=== PATIENT | male | born 1985 ===

== ENCOUNTER 2017-08-29 21:45 | Emergency (ER) | payer OTHER ==
[2017-08-29] MEDS ORDERED: VECURONIUM BROMIDE 10 MG VIAL IV ONE (21:49)
[2017-08-29] MEDS ORDERED: SUCCINYLCHOLINE CHLORIDE 20 MG/ML 10 ML VIAL IV ONE (21:49)
[2017-08-29] MEDS ORDERED: ETOMIDATE 2 MG/ML 20 ML VIAL IV ONE (21:49)
--- NOTE | 2017-08-29 21:55 | EMERGENCY ROOM VISIT NOTE ---
History Report prepared by aDrlin: Enid Bradford Under the Supervision of: Dr. Eliel Everett M.D. First contact with patient: 21:46 Chief Complaint: UNRESPONSIVE Stated Complaint: UNRESPONSIVE/BLOOD COMING FROM MOUTH History of Present Illness The patient is a 32 year old male who presents to the Emergency Room unresponsive. Arrives from [facility] by ALS. Per officer, the patient was convulsing in his residential cell and was alone. Unknown how long he was laying on ground. Per EMS, the patient may have a of schizophrenia. Limited HPI secondary to AMS. Source of History: EMS, other (officer) History Limited By: intubation Review of Systems Limited ROS secondary to intubation. Past Medical & Surgical Medical Problems: (1) Schizophrenia Family History Unable to obtain medical history sheet secondary to intubation. Social History Unable to obtain medical history sheet secondary to intubation. Current/Historical Medications Scheduled Calcium Carbonate-Vitamin D (Calcium + D), 1 TAB PO BID Perphenazine (Trilafon), 16 MG PO BID Perphenazine (Trilafon), 4 MG PO HS/UD Allergies Coded Allergies: No Known Allergies (Unverified , 08/29/17) Physical Exam Vital Signs Date Time Temp Pulse Resp B/P (MAP) Pulse Ox O2 Delivery O2 Flow Rate FiO2 08/30/17 00:44 72 25 136/104 99 08/30/17 00:17 100 08/29/17 23:40 71 25 110/78 94 Mechanical Ventilator 08/29/17 23:30 68 25 114/85 94 Mechanical Ventilator 100 08/29/17 23:20 72 25 124/87 91 Mechanical Ventilator 08/29/17 23:10 76 26 124/87 77 Ambu-Bag 15.0 08/29/17 23:00 81 26 107/72 75 Ambu-Bag 15.0 08/29/17 22:50 82 24 112/75 79 Ambu-Bag 15.0 08/29/17 22:40 62 22 125/79 60 Ambu-Bag 15.0 100 08/29/17 22:32 36.9 08/29/17 22:27 82 22 122/76 86 Ambu-Bag 15.0 08/29/17 22:00 94 24 154/92 82 Ambu-Bag 15.0 08/29/17 21:56 100 5/21/18 21:49 64 08/29/17 21:47 76 26 173/108 62 Ambu-Bag 15.0 Physical Exam GENERAL: Unresponsive, GCS 3. EYES: Right subconjunctival hemorrhage, fixed mid pupils. ENT: Mucous membranes moist, no nasal congestion. NECK: Trachea is midline, no masses, no swelling. RESPIRATORY: Equal chest rise with ventilation, diffuse crackles bilaterally, decreased breath sounds bilaterally. CARDIOVASCULAR: Cardiac activity appreciated. GASTROINTESTINAL: Abdomen soft. No masses appreciated. EXTREMITIES: All 4 extremity pulses appreciated. NEUROLOGIC: Unresponsive, GCS 3. SKIN: No rash, no jaundice. Medical Decision & Procedures ER Provider Diagnostic Interpretation: Radiology results and stated below per my review and radiologist interpretation: CHEST ONE VIEW PORTABLE HISTORY: 31 years-old Male hypoxia acute hypoxia with respiratory failure COMPARISON: None available TECHNIQUE: Portable AP view of the chest FINDINGS: Cardiac silhouette is within normal limits. Endotracheal tube overlies the midline, 3.2 cm superior to the janell. Bilateral dense alveolar opacities are noted within a multisegmental distribution favoring the perihilar and upper lung zones with air bronchograms. No pneumothorax or pleural effusion. Bones of the chest appear grossly intact. There is gaseous distention of the stomach. IMPRESSION: 1. Endotracheal tube overlies the midline, 3.2 cm superior to the janell. 2. Extensive bilateral alveolar opacities suggest multifocal pneumonia or noncardiogenic pulmonary edema. The above report was generated using voice recognition software. It may contain grammatical, syntax or spelling errors. Electronically signed by: Stanley Parker M.D. 08/29/2017 10:13 PM Dictated Date/Time: 08/29/2017 10:11 PM HEAD WITHOUT CONTRAST (CT) CLINICAL HISTORY: 31 years-old Male with AMS. Acutely altered mental status TECHNIQUE: Multiple axial CT images of the head were obtained without contrast. A dose lowering technique was utilized adhering to the principles of ALARA. COMPARISON: CT cervical spine of same day. FINDINGS: Motion degraded exam. No acute intracranial hemorrhage, midline shift, intracranial mass, hydrocephalus, territorial ischemia or abnormal extra-axial collection. The calvarium is intact. Secretions are seen within the nasopharynx, likely secondary to intubated status. Moderate thickening of the ethmoid air cells. Soft tissues are unremarkable. 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 IMPRESSION: Motion degraded exam without acute intracranial abnormality identified. The above report was generated using voice recognition software. It may contain grammatical, syntax or spelling errors. Electronically signed by: Stanley Parker M.D. 08/29/2017 10:29 PM Dictated Date/Time: 08/29/2017 10:26 PM CERVICAL SPINE W/O CT DOSE: 1165.63 mGy.cm CLINICAL HISTORY: 31 years-old Male with AMS, concern trauma. Acutely altered mental status COMPARISON: CT head of same day TECHNIQUE: Multiple axial CT images of the cervical spine were obtained without contrast. A dose lowering technique was utilized adhering to the principles of ALARA. FINDINGS: Straightening of the normal cervical lordosis. No acute cervical spine fracture, subluxation or significant degenerative changes. 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 No definite high-grade central canal or foraminal narrowing. Endotracheal tube is noted within the trachea. Moderate amount of secretions are noted within the airway. Polypoid mucosal thickening about the left maxillary sinus. Secretions are noted within the nasopharynx and ethmoid air cells. Mastoid air cells and middle ear cavities are clear. Soft tissues are unremarkable. Consolidation about the left lung apex partially imaged. IMPRESSION: No acute cervical spine fracture or subluxation. The above report was generated using voice recognition software. It may contain grammatical, syntax or spelling errors. Electronically signed by: Stanley Parker M.D. 08/29/2017 10:44 PM Dictated Date/Time: 08/29/2017 10:37 PM (CHEST FOR PE) ANGIO WITH CT DOSE: 1240.25 mGy.cm HISTORY: 31 years-old Male unresponsive. Opacities of the chest seen on chest radiograph of same day. TECHNIQUE: Multiple CTA images of the chest were obtained after the intravenous administration of 120 ml Optiray 320. Coronal and sagittal MIPS were obtained from the axial data set and were submitted for review. A dose lowering technique was utilized adhering to the principles of ALARA. COMPARISON: Chest radiograph same day. FINDINGS: CTA: Heart is normal in size. Thoracic aorta is normal in course and caliber without aneurysm or dissection. The imaged great vessels appear patent. Reflux of contrast into the IVC. Pulmonary arterial tree is opacified to the level of the subsegmental branches and demonstrates no focal filling defects to suggest pulmonary thromboembolic disease. Mild respiratory motion noted. CT CHEST: No thyroid nodule or definite pathologic adenopathy identified. Endotracheal tube is present within the trachea terminating proximally 2.3 cm superior to the janell. No pleural effusion or pneumothorax. Multilobar multisegmental consolidative and groundglass opacities are noted throughout the lungs bilaterally within an upper lung zone and perihilar predominant distribution with associated air bronchograms. Central airways are patent. Gaseous distention of the stomach with air-fluid level. Soft tissues are within normal limits. Bones appear intact. No acute displaced rib fracture identified. IMPRESSION: 1. No acute aortic pathology or evidence of pulmonary thromboembolic disease. 2. Satisfactory positioning of endotracheal tube. 3. Multilobar multisegmental consolidative and groundglass opacities throughout the lungs bilaterally within an upper lung zone and perihilar predominant distribution suggests filling of the alveoli secondary to aspiration, noncardiogenic pulmonary edema or multifocal pneumonia. 4. Gastric distention with large air-fluid level. The above report was generated using voice recognition software. It may contain grammatical, syntax or spelling errors. Electronically signed by: Stanley Parker M.D. 08/29/2017 10:55 PM Dictated Date/Time: 08/29/2017 10:49 PM CHEST ONE VIEW PORTABLE HISTORY: 31 years-old Male hypoxia acute respiratory failure with hypoxia COMPARISON: Chest radiograph of same day at 9:57 PM TECHNIQUE: Portable AP view of the chest FINDINGS: Cardiac silhouette is within normal limits. The lungs are hypoinflated with worsened lateral consolidation. Endotracheal tube overlies the midline, 3.1 cm superior to the janell. Enteric tube overlies the lower chest at the midline. Gaseous distention of the stomach. Bones appear grossly intact. IMPRESSION: 1. Distal enteric tube overlies the midline lower chest and is likely within the lower thoracic esophagus. This could be advanced at least 10 cm. 2. Satisfactory positioning of endotracheal tube. 3. Progressively worsened bilateral consolidation. The above report was generated using voice recognition software. It may contain grammatical, syntax or spelling errors. Electronically signed by: Stanley Parker M.D. 08/29/2017 11:01 PM Dictated Date/Time: 08/29/2017 10:58 PM A[address]OMEN AND PELVIS CT WITH IV CONTRAST HISTORY: Extensive pulmonary opacities with altered mental status. Concern for acute abdominal trauma. trauma, AMS, TECHNIQUE: Multiaxial CT images of the abdomen and pelvis were performed following the use of intravenous contrast. A dose lowering technique was utilized adhering to the principles of ALARA. COMPARISON STUDY: CTA of the chest of same day. FINDINGS: Extensive consolidation of the lung bases. No pneumatosis or pneumoperitoneum. Study is motion degraded. Imaged inferior cardiac chambers are unremarkable. Liver, spleen, pancreas, gallbladder and adrenal glands are unremarkable. 6 mm low attenuating lesion of the lateral interpolar left kidney suggests renal cyst. No hydronephrosis. No filling defects of the collecting systems or ureters identified. Mild bladder distention. Phleboliths of the pelvis. Aorta and IVC appear unremarkable. No retroperitoneal hematoma. Large air-fluid level with distention of the stomach. First and second portions of the duodenum are dilated and fluid-filled measuring up to 3.6 cm. Decreased caliber of the third portion duodenum with acute angulation of the superior mesenteric artery. No bowel obstruction. Minimal free pelvic fluid. Appendix appears unremarkable. No bulky adenopathy. Soft tissues are unremarkable. No acute displaced rib fracture. Bones appear intact. IMPRESSION: 1. Minimal free pelvic fluid from unknown etiology. 2. Marked distention of the stomach with associated air-fluid level. Proximal duodenum is also mildly dilated and fluid-filled with narrowing at the level of the third portion duodenum. Correlate clinically to exclude gastric outlet obstruction. 3. No fracture identified. 4. Extensive pulmonary consolidation. Electronically signed by: Stanley Parker M.D. 08/29/2017 11:10 PM Dictated Date/Time: 08/29/2017 11:01 PM Radiology results and stated below per my review. Repeat Chest X-Ray: Diffuse pulmonary congestive findings consistent with pulmonary edema. ET tube in place. No pneumothorax. NG tube is in the lower portion of the esophagus. Laboratory Results 08/29/17 22:05 Red Blood Count 5.36, Mean Corpuscular Volume 81.0, Mean Corpuscular Hemoglobin 28.7, Mean Corpuscular Hemoglobin Concent 35.5, Mean Platelet Volume 10.4, Neutrophils (%) (Auto) 82.5, Lymphocytes (%) (Auto) 10.5, Monocytes (%) (Auto) 6.2, Eosinophils (%) (Auto) 0.1, Basophils (%) (Auto) 0.0, Neutrophils # (Auto) 17.38, Lymphocytes # (Auto) 2.21, Monocytes # (Auto) 1.31, Eosinophils # (Auto) 0.02, Basophils # (Auto) 0.01 08/29/17 22:05 08/29/17 22:37 Test 08/29/17 22:05 08/29/17 22:30 08/29/17 22:37 08/29/17 23:24 White Blood Count 21.08 K/uL (4.8-10.8) Red Blood Count 5.36 M/uL (4.7-6.1) Hemoglobin 15.4 g/dL (14.0-18.0) Hematocrit 43.4 % (42-52) Mean Corpuscular Volume 81.0 fL (80-100) Mean Corpuscular Hemoglobin 28.7 pg (25-34) Mean Corpuscular Hemoglobin Concent 35.5 g/dl (32-36) Platelet Count 223 K/uL (130-400) Mean Platelet Volume 10.4 fL (7.4-10.4) Neutrophils (%) (Auto) 82.5 % Lymphocytes (%) (Auto) 10.5 % Monocytes (%) (Auto) 6.2 % Eosinophils (%) (Auto) 0.1 % Basophils (%) (Auto) 0.0 % Neutrophils # (Auto) 17.38 K/uL (1.4-6.5) Lymphocytes # (Auto) 2.21 K/uL (1.2-3.4) Monocytes # (Auto) 1.31 K/uL (0.11-0.59) Eosinophils # (Auto) 0.02 K/uL (0-0.5) Basophils # (Auto) 0.01 K/uL (0-0.2) RDW Standard Deviation 34.0 fL (36.4-46.3) RDW Coefficient of Variation 11.7 % (11.5-14.5) Immature Granulocyte % (Auto) 0.7 % Immature Granulocyte # (Auto) 0.15 K/uL (0.00-0.02) Bedside Chloride 81 mEq/L (101-112) Bedside Total CO2 21 mEq/l (24-31) Anion Gap 20.0 mmol/L (16-25) Bedside Blood Urea Nitrogen 11 mg/dl (7-18) Bedside Creatinine 0.6 mg/dl (0.6-1.3) Estimated GFR () 130.6 Estimated GFR (Non- 112.7 BUN/Creatinine Ratio 10.9 (10-20) Bedside Glucose (other) 175 mg/dl (70-99) Calcium Level 6.8 mg/dl (8.5-10.1) Bedside Ionized Calcium (John) 1.00 mmol/l (1.12-1.32) Total Bilirubin 1.0 mg/dl (0.2-1) Alanine Aminotransferase (ALT/SGPT) 59 U/L (12-78) Alkaline Phosphatase 91 U/L (45-117) Troponin I 0.046 ng/ml (0-0.045) Total Protein 6.6 gm/dl (6.4-8.2) Albumin 3.3 gm/dl (3.4-5.0) Urine Color ORANGE Urine Appearance CLOUDY (CLEAR) Urine pH 5.0 (4.5-7.5) Urine Specific [place] 1.028 (1.000-1.030) Urine Protein 2+ (NEG) Urine Glucose (UA) 2+ (NEG) Urine Ketones NEG (NEG) Urine Occult Blood 3+ (NEG) Urine Nitrite NEG (NEG) Urine Bilirubin NEG (NEG) Urine Urobilinogen NEG (NEG) Urine Leukocyte Esterase TRACE (NEG) Urine WBC (Auto) 1-5 /hpf (0-5) Urine RBC (Auto) 0-4 /hpf (0-4) Urine Hyaline Casts (Auto) 5-10 /lpf (0-5) Urine Epithelial Cells (Auto) 0-5 /lpf (0-5) Urine Bacteria (Auto) NEG (NEG) Urine Yeast (Auto) (NONE PRSENT) Direct Bilirubin mg/dl (0-0.2) Aspartate Amino Transf (AST/SGOT) 84 U/L (15-37) Total Creatine Kinase 3161 U/L (39-308) Chemistry Specimen Hemolysis Bedside Hemoglobin 15.0 g/dl (14.0-18.0) Bedside Hematocrit 44 % (42-52) Bedside Blood Gas pH (LAB) 7.33 (7.35-7.45) Bedside Blood Gas pCO2 (LAB) 34 mmHg (35-46) Bedside Blood Gas pO2 (LAB) 54 mmHg (80-95) Bedside Blood Gas HCO3 (LAB) 18 meq/L (19-24) Bedside Blood Gas Total CO2 19 mEq/l (24-31) Bedside Blood Gas Base Excess (LAB) -8.0 meq/L (-9-1.8) Bedside Blood Gas O2 Saturation 85.0 % (90-95) Bedside Sodium 116 mEq/L (135-144) Bedside Potassium 3.0 mEq/L (3.3-5.0) Laboratory results as reviewed by me. Medications Administered Medications (Trade) Dose Ordered Sig/Meliza Route Start Time Stop Time Status Last Admin Dose Admin Fentanyl Citrate (Fentanyl Inj) 100 mcg STK-MED ONCE .ROUTE 08/29/17 21:56 08/29/17 21:57 DC 08/29/17 21:56 100 MCG Midazolam HCl (Versed Inj) 10 mg STK-MED ONCE .ROUTE 08/29/17 21:56 08/29/17 21:57 DC 08/29/17 21:56 5 MG Midazolam HCl (Versed Inj) 5 mg NOW STAT IV 08/29/17 22:26 08/29/17 22:27 DC 08/29/17 22:26 5 MG Fentanyl Citrate (Fentanyl Inj) 100 mcg NOW ONCE IV 08/29/17 22:30 08/29/17 22:31 DC 08/29/17 22:30 100 MCG Miscellaneous Information (Patient'S Allergy Info Needs Entered) 1 ea NOW STAT N/A 08/29/17 22:26 08/29/17 22:27 DC 08/29/17 22:26 1 EA Levetiracetam 2000 mg/Dextrose 270 ml @ 999 mls/hr ONE ONCE IV 08/29/17 23:00 08/29/17 23:16 DC 08/29/17 23:21 999 MLS/HR Furosemide (Lasix Inj) 40 mg NOW STAT IV 08/29/17 22:57 08/29/17 22:58 DC 08/29/17 23:25 40 MG Vecuronium Lancaster (Vecuronium Lancaster Inj) 10 mg NOW STAT IV 08/29/17 23:15 08/29/17 23:17 DC 08/29/17 23:25 10 MG Fentanyl Citrate (Fentanyl Inj) 100 mcg NOW STAT IV 08/29/17 23:15 08/29/17 23:17 DC 08/29/17 23:24 100 MCG Midazolam HCl (Versed Inj) 5 mg NOW STAT IV 08/29/17 23:15 08/29/17 23:17 DC 08/29/17 23:25 5 MG Ceftriaxone Sodium (Rocephin Inj) 1 gm NOW STAT IV 08/29/17 23:32 08/29/17 23:33 DC 08/29/17 23:45 1 GM Metronidazole (Flagyl / Nss) 500 mg NOW STAT IV 08/29/17 23:32 08/29/17 23:33 DC 08/29/17 23:45 500 MG Potassium Chloride (KCL 10 mEq / WTR) 20 meq STK-MED ONCE .ROUTE 08/29/17 23:44 08/29/17 23:45 DC 08/29/17 23:46 10 MEQ Procedure Endotracheal Intubation Indication respiratory failure. The patient was on 100% oxygen via NRB prior to the procedure. Suction, airway equipment, RSI drugs, respiratory equipment, and appropriate personnel were prepared prior to the initiation of the procedure. A time out was taken. Induction was performed with etomidate and succinylcholine. After observing the clinical benefit of the medications, the airway was easily visualized utilizing a GlideScope number 4 blade. A 7.5 size ETT tube was placed atraumatically to 24 cm using standard technique. The cuff inflated without signs of malfunction. There were bilateral breath sounds, positive colormetric change, no gastric sounds, a good capnography waveform, and post procedure pulse oximetry was 68%. Post intubation sedation and paralysis was administered using Versed, fentanyl, and vecuronium. There were no complications. Note: large amounts of frothy pulmonary edema coming from trachea. ECG Per My Interpretation Indication: altered mental status Rate (beats per minute): 81 Rhythm: normal sinus Findings: no acute ischemic change, no ectopy, other (QTC 497) ED Course 7: The patient was evaluated in room B1. A complete history and physical exam was performed. 2202: The patient's sats are now 2% with aggressive bagging. 2208: The patient is going to CT scan. 2215: Discussed the patient's case with Dr. Calderón. Given the patient's persistent hypoxia and questionable trauma, he agreed it seemed reasonable to transfer the patient. 2222: We are still waiting to hear from [place]. 2226: The patient is back from CT scan. No movement. 2229: The patient continues to sat from 80% to 85% with bagging. I asked the nurses to place an NG tube 2235: [facility] is unsure if they have an ICU bed so to facilitate a faster transfer, we are calling [facility]. 2245: The patient is now hypoxic into the 70s. He has crackles bilaterally and breath sounds bilaterally. 2247: Given my evaluation, Dr. Malave notes that he feels that the patient should go to the ICU. 2255: After prolonged discussion with Avelina in [facility] ICU, she ask that the patient be transferred elsewhere given he may need ECMO. 2301: The patient is now satting at 80%. 2318: We are still waiting on the ICU. 2334: I discussed the patient's case with the [facility] ICU physician. They accepted the patient. 2344: I discussed the patient's case with [facility]'s command physician and they are determining if they can fly the patient or can go by ground. 2346: The patient is satting at 93%. 2352: The patient is being transferred to [facility]. 0016: They are putting the patient on the flight stretcher. Medical Decision Differential: Toxicological, Infectious, Stroke, SAH, Trauma, Electrolyte Abnormality, Hypoglycemia, Alcohol Intoxication, Drug Intoxication, Cardiac Abnormality, Sepsis, Meningitis/Encephalitis, Trauma, Excited Delirium, Serotonin Syndrome, Psychiatric, amongst other pathologies entertained. 31 yr old male arrives for evaluation of AMS. Very vague story with unclear exactly what actually happened. Found down in his residential cell at [facility] after unknown down time. No trauma noted other than right eye subconjunctival hematoma (of note throughout this there was concern trauma given initial reports by EMS of him laying in residential cell unconscious). Poor respirations and taken emergently by ALS to this facility. Just on arrival to hospital patient had either severe combative response vs seizure like activity, but then stopped and brought in to ED. On arrival agonal respirations with O2 sats in 40s and frothy bloody sputum noted in oropharynx/nares. Diffusely poor lung sounds with crackles. Emergently intubated and requiring hand bagging with PEEP 15 just to get sats to 60s with frequent suctioning. CXR confirms pulm edema consistent with findings on intubation. Given versed/fent/vecc for sedation and paralysis. Emergent CT head/neck negative. With no trauma appreciated on exam and negative CT cervical felt that taking collar off reasonable and will help with further management. CTA Chest with pulm edema vs ards vs infection, though no PE nor dissection nor pneumothorax. Labs with elevated WBC 21 which seems likely reactive, especially given no fevers. Suspect aspiration but clearly in pulm edema now. Na quite low of uncertain etiology. Query whether this lead to seizure, then AMS laying on floor, with development of pulmonary edema. CT abdo pelv with large gastric dilation. I do not feel that this is true assault/facial trauma and with negative ct head/neck I feel that NG tube reasonable to try decompressing stomach. NG tube placed with large outs. After essentially 90-120 minutes of playing with vent, IV lasix and keeping paralyzed patient's sats started creeping up to upper 80s/low 90s though rapidly plummet with even short decrease in pressure. Keeping with PEEP>15, RR 25, and FiO2 100%. Throughout vitals other than O2 actually doing quite well. HTN initially which gradually improved. May have been due to either seizurelike activity vs combative? Reviewed with CCM here (Dr Calderón) but given the possible need to ECMO, EEG, etc, we can not keep him at this facility. Discussed at length with [facility] though due to his significant hypoxia they felt that he probably requires higher level of care. Reviewed at length with [facility] who agree to take him. We discussed treatment approach and thus [facility] ordered. They advised holding on any IV fluids given his already severe pulmonary edema. Discussed case with Med Command Physician for [facility] as well. Of note helicopter crew in ED throughout most of stay as they had been called out prior to patient arriving here. Head Trauma GCS Score: 3 Medication Reconcilliation Current Medication List: was personally reviewed by me Blood Pressure Screening Patient's blood pressure: Normal blood pressure Consults Time Called: 2213 Consulting Physician: Dr. Calderón-Critical Care Returned Call: [phone] Discussed the patient's case with Dr. Calderón. Given the patient's persistent hypoxia and questionable trauma, he agreed it seemed reasonable to transfer the patient. Additional Consults: Time Called: 2244 Consulted Physician: Dr. Malave-Trauma Surgeon [facility] Returned Call: [phone] Additional Comments: Given my evaluation, Dr. Malave notes that he feels that the patient should go to the ICU. Time Called: 2333 Consulted Physician: [facility] ICU Physician Returned Call: [phone] Additional Comments: I discussed the patient's case with the [facility] ICU physician. They accepted the patient. Impression Primary Impression: Altered mental status Additional Impressions: Pulmonary edema Hypoxia Respiratory failure Hyponatremia Critical Care I have personally spent greater than 150 minutes of critical care time in the direct management of this patient. This was a life/limb threatening event. This includes time spent evaluating patient, direct bedside care, chart review, placing orders, interpretation of diagnostic studies, discussion with consultants, patient, and family members, as well as other required patient management activities. This 150 minutes is in excess of all separately billable procedures. Scribe Attestation The scribe's documentation has been prepared under my direction and personally reviewed by me in its entirety. I confirm that the note above accurately reflects all work, treatment, procedures, and medical decision making performed by me. Departure Information Dispostion Transfer Acute Care Facility Patient Instructions My [facility] Problem Qualifiers
[2017-08-29] MEDS ORDERED: FENTANYL CITRATE INJ 50 MCG/1 ML 2 ML VIAL ONE ×2 (21:56→22:06)
[2017-08-29] MEDS ORDERED: MIDAZOLAM HCL 5 MG/ML 2ML VIAL ONE ×3 (21:56→23:22)
--- NOTE | 2017-08-29 22:14 | DIAGNOSTIC IMAGING REPORT ---
CHEST ONE VIEW PORTABLE HISTORY: 31 years-old Male hypoxia acute hypoxia with respiratory failure COMPARISON: None available TECHNIQUE: Portable AP view of the chest FINDINGS: Cardiac silhouette is within normal limits. Endotracheal tube overlies the midline, 3.2 cm superior to the janell. Bilateral dense alveolar opacities are noted within a multisegmental distribution favoring the perihilar and upper lung zones with air bronchograms. No pneumothorax or pleural effusion. Bones of the chest appear grossly intact. There is gaseous distention of the stomach. IMPRESSION: 1. Endotracheal tube overlies the midline, 3.2 cm superior to the janell. 2. Extensive bilateral alveolar opacities suggest multifocal pneumonia or noncardiogenic pulmonary edema. The above report was generated using voice recognition software. It may contain grammatical, syntax or spelling errors. Electronically signed by: Stanley Parker M.D. 08/29/2017 10:13 PM Dictated Date/Time: 08/29/2017 10:11 PM
[2017-08-29] MEDS ORDERED: OPTIRAY 320 IV PRN (22:15)
[2017-08-29 22:19] LABS: ISTAT CREATININE 0.6 mg/dl (0.6-1.3); ISTAT POTASSIUM 3.2 mEq/L (3.3-5.0)
[2017-08-29 22:20] LABS: BASO ABS # 0.01 K/uL (0-0.2); EOS % 0.1 %; EOS ABS # 0.02 K/uL (0-0.5); HEMATOCRIT 43.4 % (42-52); HEMOGLOBIN 15.4 g/dL (14.0-18.0); IG# 0.15 K/uL (0.00-0.02); LYMPH % 10.5 %; LYMPH ABS # 2.21 K/uL (1.2-3.4); MEAN CORPUSCULAR HEMOGLOBIN 28.7 pg (25-34); MEAN CORPUSCULAR HGB CONC 35.5 g/dl (32-36); MEAN PLATELET VOLUME 10.4 fL (7.4-10.4); MONO % 6.2 %; MONO ABS # 1.31 K/uL (0.11-0.59); NEUT % 82.5 %; NEUT ABS # 17.38 K/uL (1.4-6.5); PLATELET COUNT 223 K/uL (130-400); RED CELL DISTRIBUTION WIDTH CV 11.7 % (11.5-14.5); WHITE BLOOD COUNT 21.08 K/uL (4.8-10.8)
[2017-08-29] MEDS ORDERED: MIDAZOLAM HCL 5 MG/ML 1 ML VIAL IV STA (22:26)
[2017-08-29] MEDS ORDERED: PATIENT'S ALLERGY INFO NEEDS ENTERED STA (22:26)
[2017-08-29] MEDS ORDERED: FENTANYL CITRATE INJ 50 MCG/1 ML 2 ML VIAL IV ONE (22:30)
--- NOTE | 2017-08-29 22:31 | DIAGNOSTIC IMAGING REPORT ---
HEAD WITHOUT CONTRAST (CT) CLINICAL HISTORY: 31 years-old Male with AMS. Acutely altered mental status TECHNIQUE: Multiple axial CT images of the head were obtained without contrast. A dose lowering technique was utilized adhering to the principles of ALARA. COMPARISON: CT cervical spine of same day. FINDINGS: Motion degraded exam. No acute intracranial hemorrhage, midline shift, intracranial mass, hydrocephalus, territorial ischemia or abnormal extra-axial collection. The calvarium is intact. Secretions are seen within the nasopharynx, likely secondary to intubated status. Moderate thickening of the ethmoid air cells. Soft tissues are unremarkable. 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 IMPRESSION: Motion degraded exam without acute intracranial abnormality identified. The above report was generated using voice recognition software. It may contain grammatical, syntax or spelling errors. Electronically signed by: Stanley Parker M.D. 08/29/2017 10:29 PM Dictated Date/Time: 08/29/2017 10:26 PM
[2017-08-29 22:32] VITALS: TEMP 36.9
--- NOTE | 2017-08-29 22:45 | DIAGNOSTIC IMAGING REPORT ---
CERVICAL SPINE W/O CT DOSE: 1165.63 mGy.cm CLINICAL HISTORY: 31 years-old Male with AMS, concern trauma. Acutely altered mental status COMPARISON: CT head of same day TECHNIQUE: Multiple axial CT images of the cervical spine were obtained without contrast. A dose lowering technique was utilized adhering to the principles of ALARA. FINDINGS: Straightening of the normal cervical lordosis. No acute cervical spine fracture, subluxation or significant degenerative changes. 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 No definite high-grade central canal or foraminal narrowing. Endotracheal tube is noted within the trachea. Moderate amount of secretions are noted within the airway. Polypoid mucosal thickening about the left maxillary sinus. Secretions are noted within the nasopharynx and ethmoid air cells. Mastoid air cells and middle ear cavities are clear. Soft tissues are unremarkable. Consolidation about the left lung apex partially imaged. IMPRESSION: No acute cervical spine fracture or subluxation. The above report was generated using voice recognition software. It may contain grammatical, syntax or spelling errors. Electronically signed by: Stanley Parker M.D. 08/29/2017 10:44 PM Dictated Date/Time: 08/29/2017 10:37 PM
[2017-08-29 22:47] LABS: ALBUMIN 3.3 gm/dl (3.4-5.0); ALT/SGPT 59 U/L (12-78); BLOOD UREA NITROGEN 10 mg/dl (7-18); CALCIUM 6.8 mg/dl (8.5-10.1); CARBON DIOXIDE 20 mmol/L (21-32); CREATININE 0.91 mg/dl (0.60-1.40); GLUCOSE 159 mg/dl (70-99)
[2017-08-29] MEDS ORDERED: FUROSEMIDE 40 MG/4 ML VIAL IV STA (22:57)
--- NOTE | 2017-08-29 22:57 | DIAGNOSTIC IMAGING REPORT ---
(CHEST FOR PE) ANGIO WITH CT DOSE: 1240.25 mGy.cm HISTORY: 31 years-old Male unresponsive. Opacities of the chest seen on chest radiograph of same day. TECHNIQUE: Multiple CTA images of the chest were obtained after the intravenous administration of 120 ml Optiray 320. Coronal and sagittal MIPS were obtained from the axial data set and were submitted for review. A dose lowering technique was utilized adhering to the principles of ALARA. COMPARISON: Chest radiograph same day. FINDINGS: CTA: Heart is normal in size. Thoracic aorta is normal in course and caliber without aneurysm or dissection. The imaged great vessels appear patent. Reflux of contrast into the IVC. Pulmonary arterial tree is opacified to the level of the subsegmental branches and demonstrates no focal filling defects to suggest pulmonary thromboembolic disease. Mild respiratory motion noted. CT CHEST: No thyroid nodule or definite pathologic adenopathy identified. Endotracheal tube is present within the trachea terminating proximally 2.3 cm superior to the janell. No pleural effusion or pneumothorax. Multilobar multisegmental consolidative and groundglass opacities are noted throughout the lungs bilaterally within an upper lung zone and perihilar predominant distribution with associated air bronchograms. Central airways are patent. Gaseous distention of the stomach with air-fluid level. Soft tissues are within normal limits. Bones appear intact. No acute displaced rib fracture identified. IMPRESSION: 1. No acute aortic pathology or evidence of pulmonary thromboembolic disease. 2. Satisfactory positioning of endotracheal tube. 3. Multilobar multisegmental consolidative and groundglass opacities throughout the lungs bilaterally within an upper lung zone and perihilar predominant distribution suggests filling of the alveoli secondary to aspiration, noncardiogenic pulmonary edema or multifocal pneumonia. 4. Gastric distention with large air-fluid level. The above report was generated using voice recognition software. It may contain grammatical, syntax or spelling errors. Electronically signed by: Stanley Parker M.D. 08/29/2017 10:55 PM Dictated Date/Time: 08/29/2017 10:49 PM
[2017-08-29] MEDS ORDERED: LEVETIRACETAM IV 2,000 MG in DEXTROSE 5% 250ML 250 ML IV ONE (23:00)
--- NOTE | 2017-08-29 23:02 | DIAGNOSTIC IMAGING REPORT ---
CHEST ONE VIEW PORTABLE HISTORY: 31 years-old Male hypoxia acute respiratory failure with hypoxia COMPARISON: Chest radiograph of same day at 9:57 PM TECHNIQUE: Portable AP view of the chest FINDINGS: Cardiac silhouette is within normal limits. The lungs are hypoinflated with worsened lateral consolidation. Endotracheal tube overlies the midline, 3.1 cm superior to the janell. Enteric tube overlies the lower chest at the midline. Gaseous distention of the stomach. Bones appear grossly intact. IMPRESSION: 1. Distal enteric tube overlies the midline lower chest and is likely within the lower thoracic esophagus. This could be advanced at least 10 cm. 2. Satisfactory positioning of endotracheal tube. 3. Progressively worsened bilateral consolidation. The above report was generated using voice recognition software. It may contain grammatical, syntax or spelling errors. Electronically signed by: Stanley Parker M.D. 08/29/2017 11:01 PM Dictated Date/Time: 08/29/2017 10:58 PM
[2017-08-29 23:07] LABS: SODIUM 117 mmol/L (136-145)
[2017-08-29 23:08] LABS: ALKALINE PHOSPHATASE 91 U/L (45-117); TOTAL PROTEIN 6.6 gm/dl (6.4-8.2)
--- NOTE | 2017-08-29 23:11 | DIAGNOSTIC IMAGING REPORT ---
ABDOMEN AND PELVIS CT WITH IV CONTRAST HISTORY: Extensive pulmonary opacities with altered mental status. Concern for acute abdominal trauma. trauma, AMS, TECHNIQUE: Multiaxial CT images of the abdomen and pelvis were performed following the use of intravenous contrast. A dose lowering technique was utilized adhering to the principles of ALARA. COMPARISON STUDY: CTA of the chest of same day. FINDINGS: Extensive consolidation of the lung bases. No pneumatosis or pneumoperitoneum. Study is motion degraded. Imaged inferior cardiac chambers are unremarkable. Liver, spleen, pancreas, gallbladder and adrenal glands are unremarkable. 6 mm low attenuating lesion of the lateral interpolar left kidney suggests renal cyst. No hydronephrosis. No filling defects of the collecting systems or ureters identified. Mild bladder distention. Phleboliths of the pelvis. Aorta and IVC appear unremarkable. No retroperitoneal hematoma. Large air-fluid level with distention of the stomach. First and second portions of the duodenum are dilated and fluid-filled measuring up to 3.6 cm. Decreased caliber of the third portion duodenum with acute angulation of the superior mesenteric artery. No bowel obstruction. Minimal free pelvic fluid. Appendix appears unremarkable. No bulky adenopathy. Soft tissues are unremarkable. No acute displaced rib fracture. Bones appear intact. IMPRESSION: 1. Minimal free pelvic fluid from unknown etiology. 2. Marked distention of the stomach with associated air-fluid level. Proximal duodenum is also mildly dilated and fluid-filled with narrowing at the level of the third portion duodenum. Correlate clinically to exclude gastric outlet obstruction. 3. No fracture identified. 4. Extensive pulmonary consolidation. Electronically signed by: Stanley Parker M.D. 08/29/2017 11:10 PM Dictated Date/Time: 08/29/2017 11:01 PM
[2017-08-29] MEDS ORDERED: FENTANYL CITRATE INJ 50 MCG/1 ML 2 ML VIAL IV STA (23:15)
[2017-08-29] MEDS ORDERED: MIDAZOLAM HCL 1 MG/ML 2ML VIAL IV STA (23:15)
[2017-08-29] MEDS ORDERED: VECURONIUM BROMIDE 10 MG VIAL IV STA (23:15)
[2017-08-29 23:17] LABS: POTASSIUM 2.9 mmol/L (3.5-5.1)
[2017-08-29] MEDS ORDERED: CALC600T9 PO (23:22)
[2017-08-29] MEDS ORDERED: PERP1TAB8 PO (23:24)
[2017-08-29] MEDS ORDERED: PERP4TAB37 PO (23:26)
[2017-08-29] MEDS ORDERED: POTASSIUM CHLR 20 MEQ / WTR 20 MEQ IV STA (23:32)
[2017-08-29] MEDS ORDERED: METRONIDAZOLE 500MG / 100ML NSS IV STA (23:32)
[2017-08-29] MEDS ORDERED: CEFTRIAXONE SOD INJ 1 GM ADDVIAL IV STA (23:32)
[2017-08-29 23:34] LABS: AST/SGOT 84 U/L (15-37)
[2017-08-29] MEDS ORDERED: POTASSIUM CHLORIDE 10 MEQ / 100ML WTR ONE (23:44)
[2017-08-29 23:56] LABS: ISTAT SODIUM 116 mEq/L (135-144)
[2017-08-30 00:44] VITALS: BP 136/104; PULSE 72; O2SAT 99
--- NOTE | 2017-08-30 06:47 | DIAGNOSTIC IMAGING REPORT ---
CHEST ONE VIEW PORTABLE CLINICAL HISTORY: NG Placement COMPARISON STUDY: Chest radiograph August 29, 2017 at 10:36 PM. FINDINGS: The final image obtained at 11:02 PM demonstrates tip of nasogastric tube projects over the pylorus. Gastric distention has improved. Tip of endotracheal tube is 3 cm above the janell. Extensive bilateral airspace opacities persist. IMPRESSION: 1. Tip of nasogastric tube projects over the pylorus. Interval improvement in gastric distention. 2. Tip of endotracheal tube 3 cm above the janell. 3. Persistent extensive bilateral airspace opacities suggestive of pneumonia. Electronically signed by: Vlad Carmona M.D. 08/30/2017 6:45 AM Dictated Date/Time: 08/30/2017 6:44 AM
== END 2017-08-30 00:30 | disposition short-term general hospital (02) ==
LOC: C.EDB 21:48
DX: R41.82 Altered mental status, unspecified (principal); J81.1 Chronic pulmonary edema; R09.02 Hypoxemia; J96.90 Respiratory failure, unspecified, unspecified whether with hypoxia or hypercapnia; E87.1 Hypo-osmolality and hyponatremia; F20.9 Schizophrenia, unspecified; Z79.899 Other long term (current) drug therapy